=== PATIENT | female | born 1960 | race Caucasian/White ===

== ENCOUNTER → 2020-01-29 08:39 | Outpatient (BNVA) | payer BC, SELFPAY | PROVIDERS: Family Provider Family Medicine; PCP Family Medicine; Visit Provider Family Medicine | DX: I10 Essential (primary) hypertension (principal); E11.9 Type 2 diabetes mellitus without complications; E86.0 Dehydration; E78.2 Mixed hyperlipidemia | CPT/HCPCS: 80053; 80061; 82044; 83036; 85025 ==

== ENCOUNTER 2020-03-09 18:49 | Emergency (ER) | payer BC, SELFPAY ==
[2020-03-09 19:03] VITALS: BP 148/77; PULSE 68; RESP 16; TEMP 37; O2SAT 98
--- NOTE | 2020-03-09 19:19 | ED_ITS ---
HPI - Abdominal Pain General: Chief Complaint: Abdominal Pain Stated Complaint: abd pain Time Seen by Provider: 03/09/20 19:11 History of Present Illness: HPI narrative: Patient is a 59-year-old female comes to the ED with right lower quadrant abdominal pain. Patient says symptoms started Saturday night. She describes the pain as a dull achy pain in the right lower quadrant of her abdomen. When she lays flat or takes a deep breath she can feel the pain. She says that the pain has stayed the same since Saturday. She currently rates the pain about a 5 out of 10. Patient did say she was lifting and hauling wood during the day on Saturday. Denies any fever, chills, nausea, vomiting, loss of appetite, diarrhea, constipation, blood in the stool, dysuria, hematuria. Denies any past abdominal surgeries. Associated Symptoms: Denies chills, constipation, diarrhea, dysuria, fever(s), hematochezia, hematuria, nausea and vomiting Review of Systems Const: Denies: fever(s), chills or fatigue Eyes: Denies: change in vision or eye discomfort ENMT: Denies: throat pain, odynophagia, nasal discharge or nasal congestion Card: Denies: chest pain, palpitations, edema, swelling of feet/ankles, dyspnea on exertion or orthopnea Resp: Denies: dyspnea, productive cough or non-productive cough GI: Reports: abdominal pain (RLQ); Denies: nausea, vomiting, diarrhea, constipation or hematochezia : Denies: flank pain, dysuria or hematuria Musc: Denies: neck pain, back pain or extremity swelling Skin/Breast: Denies: rash or new lesions Neuro: Denies: headache(s), numbness in extremities or weakness in extremities PFSH ED PFSH: Medical History Agitation Benign essential HTN Hyperlipidemia Prediabetes Surgical History No pertinent past surgical history Family History Other Diabetes Social History Smoking and tobacco status: never smoked Alcohol intake: never Physical Exam Const: COMMON NORMALS: no acute distress, patient oriented x3, healthy appearing and alert GENERAL APPEARANCE: cooperative and comfortable HENMT: COMMON NORMALS: normocephalic HEAD & SCALP: normocephalic MOUTH: Normal oral and palatal mucosa present THROAT: posterior oropharynx normal and uvula midline Eye: COMMON NORMALS: Equal, round and reactive pupils present PUPIL: Yes Equal, round and reactive pupils present Neck/C-Spine: COMMON NORMALS: supple GENERAL: Yes normal visual inspection Resp: COMMON NORMALS: normal respiratory effort, No retractions, No use of accessory muscles and clear to auscultation bilaterally AUSCULTATION: clear to auscultation bilaterally Cardio: COMMON NORMALS: regular rate, regular rhythm, S1 normal heart sound present, S2 normal heart sound present, No gallops present (Cardio), No clicks present (Cardio), No murmurs present (Cardio) and Peripheral pulses 2+ throughout RATE: regular rate RHYTHM: regular rhythm HEART SOUNDS: S1 normal heart sound present and S2 normal heart sound present PERIPHERAL PULSES: Peripheral pulses 2+ throughout GI: COMMON NORMALS: Normal to inspection, nondistended, normoactive bowel sounds present, Soft to palpation and no masses PALPATION: Yes Soft to palpation and Yes Tenderness to palpation present (GI) Details: RLQ (minimal tenderness, no peritoneal signs) : COMMON NORMALS: Yes no CVA tenderness BLADDER/KIDNEY EXAM: Yes no CVA tenderness Back/Pelvis: COMMON NORMALS: no CVA tenderness Extremity: COMMON NORMALS: normal to inspection and no pedal edema Neuro: COMMON NORMALS: patient oriented x3 SENSORIUM/ORIENTATION: Yes alert GAIT: Yes Normal gait present Skin: COMMON NORMALS: no rashes or lesions noted GENERAL SKIN EXAM: no rashes or lesions noted and dry skin Course Vital Signs: Vital signs: Vital Signs Temperature 98.6 F 03/09/20 19:03 Pulse Rate 73 03/09/20 22:28 Respiratory Rate 14 03/09/20 22:28 Blood Pressure 113/56 03/09/20 22:28 Pulse Oximetry 95 03/09/20 22:28 MDM - Abdominal Pain MDM Narrative: Medical decision making narrative: Patient is a 5-year-old female comes to the ED with right lower quadrant abdominal pain. She has no other symptoms such as nausea, vomiting, fever, loss of appetite, diarrhea or constipation. Patient did state she did lift and move some water around her property right before abdominal pain. White blood cells 9, CMP, UA and lipase were unremarkable. CT of the abdomen was also performed to evaluate for appendicitis. CT results showed no acute findings no appendicitis seen. Patient diagnosed with abdominal muscle pain. She was discharged and told to follow-up with PCP in 7 to 10 days. Take ibuprofen for pain. Return to ED if any worsening symptoms. Patient understood and agreed with plan. Lab Data: Attestation: I reviewed the patient's lab results. Labs: Lab Results 03/09/20 03/09/20 03/09/20 Range/Units 19:17 19:17 19:40 WBC 9.0 (4.0-10.0) 10^3/ uL RBC 4.20 (4.1-5.3) 10^6/u L Hgb 12.5 (11.5-15.3) g/dL Hct 37.9 (37.0-47.0) % MCV 90.2 (81-99) fL MCH 29.8 (28.0-34.0) pg MCHC 33.0 (30.0-36.0) g/dL RDW 13.7 (12.1-15.1) % Plt Count 273 (130-400) 10^3/c mm MPV 10.3 (7.4-10.4) fL Neut % (Auto) 46.3 % Lymph % (Auto) 41.4 % [place] % (Auto) 9.7 % Eos % (Auto) 2.0 % Baso % (Auto) 0.4 % Neut # (Auto) 4.2 (1.8-7.7) 10^3/u L Lymph # (Auto) 3.7 (0.8-4.8) 10^3/u L [place] # (Auto) 0.9 (0.2-0.9) 10^3/u L Eos # (Auto) 0.2 (0.0-0.8) 10^3/u L Baso # (Auto) 0.0 (0.0-0.1) 10^3/u L Nucleated RBC % (a uto) 0 % Nucleated RBCs # 0.0 /100WBC Sodium 140 (136-145) mmol/L Potassium 3.9 (3.5-5.1) mmol/L Chloride 100 (98-107) mmol/L Carbon Dioxide 30 H (22-29) mmol/L Anion Gap 13.9 (5-19) BUN 17 (8-23) mg/dL Creatinine 0.7 (0.5-0.9) mg/dL GFR Calculation 85.4 L (90-130) mL/min Glucose 109 (65-115) mg/dL Calculated Osmolal ity 287 (285-295) mOsm/k g Calcium 9.8 (8.5-10.5) mg/dL Total Bilirubin 0.5 (0.15-1.2) mg/dL AST 15 (0-32) U/L ALT 19 (0-33) U/L Alkaline Phosphata se 62 (35-105) IU/L Total Protein 7.1 (6.6-8.7) g/dL Albumin 4.5 (3.5-5.2) g/dL Globulin 2.6 (1.3-4.6) g/dL Lipase 57 (13-60) U/L Urine Color Straw (Yellow) Urine Appearance Clear (CLEAR) Urine pH 6 (5-7) Ur Specific Gravit y 1.010 (1.005-1.030) Urine Protein Neg (Negative) Urine Glucose (UA) Norm (Normal) Urine Ketones Negative (Negative) Urine Blood Neg (Negative) Urine Nitrate Negative (Negative) Urine Bilirubin Neg (NEGATIVE) Urine Urobilinogen Norm (Negative) mg/dL Ur Leukocyte Iva ase Negative (Negative) Imaging Data ^: CT Abd/Pel: Attestation: I personally reviewed and interpreted this imaging study as follows: Radiologist's impression: [place] [address] CT Scan Report Signed Patient: Ana Zavaleta Unit #: [id number] : 1960 Acc t#:[id number] Age/Sex: 59 / F ADM Date: 03/09/20 Loc: ER Room/Bed: Attending Dr: Ordering Provider/Ordering MD: Adonis Rodriguez Date of Service: 03/09/20 Procedure(s): CT abdomen pelvis w con* [id number] Accession Number(s): [id number] Report Number: [id number] PROCEDURE INFORMATION: Exam: CT Abdomen And Pelvis With Contrast Exam date and time: 03/09/2020 8:06 PM Age: 59 years old Clinical indication: Abdominal pain; Localized; Right lower quadrant (rlq); Additional info: Rlq pain TECHNIQUE: Imaging protocol: Computed tomography of the abdomen and pelvis with intravenous contrast. Radiation optimization: All CT scans at this facility use at least one of these dose optimization techniques: automated exposure control; mA and/or kV adjustment per patient size (includes targeted exams where dose is matched to clinical indication); or iterative reconstruction. Contrast material: OMNI 300; Contrast volume: 95 ml; Contrast route: INTRAVENOUS (IV); COMPARISON: No relevant prior studies available. RADIATION DOSE METRICS: Total DLP (mGy-cm): 757.89 FINDINGS: Mediastinal space: Small hiatal hernia. Liver: Normal. No mass. Gallbladder and bile ducts: Multiple calcified stones in the gallbladder. No visible wall thickening. The bile ducts are normal. Pancreas: Normal. No ductal dilation. Spleen: Normal. No splenomegaly. Adrenals: Normal. No mass. Kidneys and ureters: Normal. No hydronephrosis. Stomach and bowel: Mild diverticulosis of the sigmoid colon without diverticulitis. The small bowel is unremarkable. Appendix: The appendix is visible and is normal. Intraperitoneal space: Unremarkable. No free air. No significant fluid collection. Vasculature: Unremarkable. No abdominal aortic aneurysm. Lymph nodes: Unremarkable. No enlarged lymph nodes. Bladder: Unremarkable as visualized. Reproductive: Unremarkable as visualized. Bones/joints: Unremarkable. No acute fracture. Soft tissues: Unremarkable. CT/CT abdomen pelvis w con* [id number] IMPRESSION: 1. No acute abnormality identified in the abdomen or pelvis. 2. Cholelithiasis. 3. Diverticulosis of the distal colon. Radiation Dose CTDIVOL = (mGy): DLP = 757.89 (mGy-cm) Dictated By: Haider Oliva Signed By: Haider Oliva Signed Date/Time: 03/09/202121 DD/ 20 Discharge Plan Discharge Patient Disposition: Home, Self-Care Clinical Impression: Abdominal muscle pain Condition: Stable Prescriptions: No Action lisinopril-hydrochlorothiazide 20-25 mg tablet 1 tab PO DAILY Qty: 90 RF: 0 citalopram [Celexa] 10 mg tablet 10 mg PO DAILY Qty: 90 RF: 0 atorvastatin 40 mg tablet 40 mg PO DAILY RF: 0 metformin 500 mg tablet extended release 24hr 500 mg PO DAILY RF: 0 Discharge Orders: Discharge Order (Routine); Ordered 03/09/20 Ordered By: Adonis Rodriguez Referrals: Madeline Valentino DO [Primary Care Provider] - Discharge Diet: Regular Discharge Activity: Increase activity as tolerated Patient Instructions: Muscle Strain (ED) Activity Restrictions/Additional Instructions: Contact your PCP and schedule a follow-up appointment for reevaluation in 7 to 10 days. Take ibuprofen for pain. You can apply ice pack or heat pad to help with symptoms. Rest for the next couple days and avoid any heavy lifting. Discharge Date/Time: 03/09/20 22:44 Coding Level of Care Code ED Outreach Librarian for Chg Fwd Exam Comprehensive
[2020-03-09 19:23] LABS: Basophils % 0.4 %; Eosinophils # 0.2 10^3/uL (0.0-0.8); Hematocrit 37.9 % (37.0-47.0); Hemoglobin 12.5 g/dL (11.5-15.3); Lymphocytes # 3.7 10^3/uL (0.8-4.8); Lymphocytes % 41.4 %; Mean Corpuscular Hemoglobin 29.8 pg (28.0-34.0); Mean Corpuscular Volume 90.2 fL (81-99); Mean Platelet Volume 10.3 fL (7.4-10.4); Monocytes # 0.9 10^3/uL (0.2-0.9); Monocytes % 9.7 %; Neutrophils # 4.2 10^3/uL (1.8-7.7); Neutrophils % 46.3 %; Nucleated Red Blood Cells % 0 %; Platelet Count 273 10^3/cmm (130-400); Red Cell Distribution Width 13.7 % (12.1-15.1)
[2020-03-09 19:49] LABS: Alanine Aminotransferase 19 U/L (0-33); Albumin Level 4.5 g/dL (3.5-5.2); Alkaline Phosphatase 62 IU/L (35-105); Anion Gap 13.9 (5-19); Aspartate Amino Transferase 15 U/L (0-32); Blood Urea Nitrogen 17 mg/dL (8-23); Calcium 9.8 mg/dL (8.5-10.5); Carbon Dioxide 30 mmol/L (22-29); Chloride 100 mmol/L (98-107); Globulin 2.6 g/dL (1.3-4.6); Glomerular Filtration Rate 85.4 mL/min (90-130); Glucose 109 mg/dL (65-115); Lipase 57 U/L (13-60); Osmolality Calculated 287 mOsm/kg (285-295); Potassium 3.9 mmol/L (3.5-5.1); Sodium 140 mmol/L (136-145); Total Bilirubin 0.5 mg/dL (0.15-1.2); Total Protein 7.1 g/dL (6.6-8.7)
[2020-03-09 20:04] LABS: Add Urine Microscopic? NO
--- NOTE | 2020-03-09 20:04 | CTR_ITS ---
PROCEDURE INFORMATION: Exam: CT Abdomen And Pelvis With Contrast Exam date and time: 03/09/2020 8:06 PM Age: 59 years old Clinical indication: Abdominal pain; Localized; Right lower quadrant (rlq); Additional info: Rlq pain TECHNIQUE: Imaging protocol: Computed tomography of the abdomen and pelvis with intravenous contrast. Radiation optimization: All CT scans at this facility use at least one of these dose optimization techniques: automated exposure control; mA and/or kV adjustment per patient size (includes targeted exams where dose is matched to clinical indication); or iterative reconstruction. Contrast material: OMNI 300; Contrast volume: 95 ml; Contrast route: INTRAVENOUS (IV); COMPARISON: No relevant prior studies available. RADIATION DOSE METRICS: Total DLP (mGy-cm): 757.89 FINDINGS: Mediastinal space: Small hiatal hernia. Liver: Normal. No mass. Gallbladder and bile ducts: Multiple calcified stones in the gallbladder. No visible wall thickening. The bile ducts are normal. Pancreas: Normal. No ductal dilation. Spleen: Normal. No splenomegaly. Adrenals: Normal. No mass. Kidneys and ureters: Normal. No hydronephrosis. Stomach and bowel: Mild diverticulosis of the sigmoid colon without diverticulitis. The small bowel is unremarkable. Appendix: The appendix is visible and is normal. Intraperitoneal space: Unremarkable. No free air. No significant fluid collection. Vasculature: Unremarkable. No abdominal aortic aneurysm. Lymph nodes: Unremarkable. No enlarged lymph nodes. Bladder: Unremarkable as visualized. Reproductive: Unremarkable as visualized. Bones/joints: Unremarkable. No acute fracture. Soft tissues: Unremarkable. CT/CT abdomen pelvis w con* [id number] IMPRESSION: 1. No acute abnormality identified in the abdomen or pelvis. 2. Cholelithiasis. 3. Diverticulosis of the distal colon. Radiation Dose CTDIVOL = (mGy): DLP = 757.89 (mGy-cm)
[2020-03-09 20:10] LABS: Urine Appearance Clear (CLEAR); Urine Color Straw (Yellow); pH Urine 6 (5-7)
[2020-03-09 20:11] LABS: Bilirubin Urine Neg (NEGATIVE); Blood Urine Neg (Negative); Glucose Urine UA Norm (Normal); Ketones Urine Negative (Negative); Leukocyte Esterase Urine Negative (Negative); Nitrate Urine Negative (Negative); Protein Urine Neg (Negative); Urobilinogen Urine Norm (Negative)
[2020-03-09 20:26] VITALS: BP 153/73; PULSE 78; RESP 14; O2SAT 98
[2020-03-09] MEDS: sodium chloride 0.9% 1,000 ML 999 ML IV (20:28)
[2020-03-09] MEDS: ondansetron 2 mg/ML SDV 2 mL 4 MG IVP (20:31)
[2020-03-09] MEDS: morphine 4 mg/mL SDV 1 mL IVP (20:32)
[2020-03-09] MEDS: iohexol 300 mg/mL 100 mL Btl IV (20:50)
[2020-03-09 21:32] VITALS: BP 111/75; PULSE 72; RESP 14; O2SAT 93
[2020-03-09 22:28] VITALS: BP 113/56; PULSE 73; RESP 14; O2SAT 95
== END 2020-03-09 22:44 | disposition home or self-care (01) ==
PROVIDERS: Emergency Medicine; Emergency Provider Physician Assistant; PCP Family Medicine
DX: R10.9 Unspecified abdominal pain (principal); I10 Essential (primary) hypertension; E78.5 Hyperlipidemia, unspecified
CPT/HCPCS: 12345; 36415; 74177; 80053; 81003; 83690; 85025; 96361; 96374; 96375; 99283; A9270; J2270; J2405; J7030; Q9967

== ENCOUNTER → 2020-06-09 09:55 | Outpatient (BNVA) | payer BC, SELFPAY | PROVIDERS: PCP Family Medicine; Visit Provider Family Medicine | DX: E11.9 Type 2 diabetes mellitus without complications (principal) | CPT/HCPCS: 80053; 83036 ==

== ENCOUNTER → 2020-09-08 08:30 | Outpatient (BNVA) | payer BC, SELFPAY | PROVIDERS: PCP Family Medicine; Visit Provider Family Medicine | DX: E78.2 Mixed hyperlipidemia (principal); E11.9 Type 2 diabetes mellitus without complications | CPT/HCPCS: 80053; 80061; 83036 ==

== ENCOUNTER 2020-09-19 08:12 | Outpatient (CLI) | payer BC, SELFPAY ==
--- NOTE | 2020-09-19 08:23 | MM_ITS ---
WS: [id number] Exam: [id number] Date/Time of Exam: 09/19/2020 9:12 AM Reason For Exam: SCREENING VIEWS: MLO and CC views both breasts. Comparison made with prior exam of 08/13/2018. Findings: There was no sign of mass, architectural distortion or suspicious calcification in either breast. gosia MM/[id number] Impression: BI-RADS: 2-Benign FOLLOW-UP: 1 Year Follow-up This mammogram was also analyzed by the Computer Aided Detection System R2 Imag e Dining Service Inspector.
== END 2020-09-19 08:13 | disposition home or self-care (01) ==
LOC: RADSHAW 08:14
PROVIDERS: PCP Family Medicine; Visit Provider Family Medicine
DX: Z12.31 Encounter for screening mammogram for malignant neoplasm of breast (principal)
CPT/HCPCS: 77067

== ENCOUNTER → 2021-03-23 09:03 | Outpatient (BNVA) | payer OTHER, SELFPAY | PROVIDERS: PCP Family Medicine; Visit Provider Family Medicine | DX: B35.1 Tinea unguium (principal); E78.2 Mixed hyperlipidemia | CPT/HCPCS: 80053 ==

== ENCOUNTER 2021-04-06 07:39 | Outpatient (CLI) | payer OTHER, SELFPAY ==
--- NOTE | 2021-04-06 08:00 | US_ITS ---
WS: [id number] ULTRASOUND PELVIS TECHNIQUE: Transabdominal and transvaginal. ULTRASOUND PELVIS TECHNIQUE: Transabdominal. CLINICAL INFORMATION: rlq pain LMP: : No. COMPARISON: None. FINDINGS: Technically difficult examination due to bowel gas. Uterus Orientation: Anteverted. Size: 5.7 cm x 4.0 cm x 3.0 cm. Masses: None. Cervix: Appears normal Endometrium: Small amount of fluid in the endometrial canal. Endometrium thickness: 0.2 cm. Adnexa: No adnexal masses. Ovaries not well visualized. Free fluid: None. Other findings: None. US/US pelvic with transvaginal IMPRESSION: Technically difficult examination 1. Uterus normal in appearance for age. Endometrium measures 2.3 mm. 2. Small amount of fluid in the endometrial canal 3. Ovaries not well visualized. 4. No other significant findings.
== END 2021-04-06 07:40 | disposition home or self-care (01) ==
LOC: RAD 07:41
PROVIDERS: PCP Family Medicine; Visit Provider Family Medicine
DX: R10.31 Right lower quadrant pain (principal)
CPT/HCPCS: 76830; 76856

== ENCOUNTER → 2021-06-13 08:59 | Outpatient (BNVA) | payer OTHER, SELFPAY | PROVIDERS: PCP Family Medicine; Visit Provider Family Medicine | DX: E78.2 Mixed hyperlipidemia (principal); E11.9 Type 2 diabetes mellitus without complications; I10 Essential (primary) hypertension | CPT/HCPCS: 80053; 80061; 83036; 85025 ==

== ENCOUNTER 2021-12-06 14:54 | Outpatient (CLI) | payer OTHER, SELFPAY ==
--- NOTE | 2021-12-06 15:01 | MM_ITS ---
WS: [id number] BILATERAL 3D TOMOSYNTHESIS DIGITAL SCREENING MAMMOGRAPHY WITH CAD CLINICAL INFORMATION: SCREENING HISTORY: Screening mammogram. No current complaints. COMPARISON: September 19, 2020 TECHNIQUE: Bilateral CC and MLO views. FINDINGS: Scattered fibroglandular densities bilaterally. Incidental punctate calcifications LEFT breast. No orantes spicious focal mass, asymmetry, calcifications, or architectural distortion. No evidence of malignanc y. MM/[id number] IMPRESSION: BI-RADS: 2-Benign FOLLOW UP: 1 Year Follow-up Recommend return to annual screening mammography.
== END 2021-12-06 14:55 | disposition home or self-care (01) ==
LOC: RADSHAW 14:57
PROVIDERS: PCP Family Medicine; Visit Provider Family Medicine
DX: Z12.31 Encounter for screening mammogram for malignant neoplasm of breast (principal)
CPT/HCPCS: 77063; 77067

== ENCOUNTER → 2021-12-12 10:32 | Outpatient (BNVA) | payer OTHER, MEDICAID, SELFPAY | PROVIDERS: PCP Family Medicine; Visit Provider Family Medicine | DX: E11.9 Type 2 diabetes mellitus without complications (principal) | CPT/HCPCS: 80053; 83036 ==

== ENCOUNTER → 2021-12-19 09:11 | Outpatient (BNVA) | payer OTHER, MEDICAID, SELFPAY | PROVIDERS: PCP Family Medicine; Referring Provider Family Medicine; Visit Provider Podiatrist Foot & Ankle Surgery | DX: M25.571 Pain in right ankle and joints of right foot (principal); M21.961 Unspecified acquired deformity of right lower leg | CPT/HCPCS: 73610 ==

== ENCOUNTER → 2022-06-18 08:30 | Outpatient (BNVA) | payer BC, MEDICAID, SELFPAY | PROVIDERS: PCP Family Medicine; Visit Provider Family Medicine | DX: I10 Essential (primary) hypertension (principal); E78.2 Mixed hyperlipidemia; E11.9 Type 2 diabetes mellitus without complications; R45.1 Restlessness and agitation | CPT/HCPCS: 80053; 80061; 83036; 85025 ==

== ENCOUNTER → 2022-06-21 09:16 | Outpatient (BNVA) | payer BC, MEDICAID, SELFPAY | PROVIDERS: PCP Family Medicine; Visit Provider Family Medicine | DX: E78.2 Mixed hyperlipidemia (principal); E11.9 Type 2 diabetes mellitus without complications; I10 Essential (primary) hypertension | CPT/HCPCS: 82043 ==

== ENCOUNTER 2022-10-28 13:24 | Emergency (ER) | payer BC, MEDICAID, SELFPAY ==
[2022-10-28] VITALS (12 sets, daily range): BP systolic 106–151; BP diastolic 60–83; PULSE 112; RESP 16; TEMP 36.7; O2SAT 90–96; BMI 34.3
--- NOTE | 2022-10-28 13:38 | ED_ITS ---
HPI - Nausea/Vomiting/Diarrhea General: Chief complaint: Nausea/Vomiting/Diarrhea Stated complaint: n/v/d Time Seen by Provider: 10/28/22 13:37 PFSH ED PFSH: Medical History Agitation Benign essential HTN Hyperlipidemia Type 2 diabetes mellitus, without long-term current use of insulin Surgical History No pertinent past surgical history Family History Other Diabetes Social History Smoking and tobacco status: never smoked Alcohol intake: never Course Vital Signs: Vital signs: Vital Signs Temperature 98.0 F 10/28/22 13:28 Pulse Rate 112 H 10/28/22 13:28 Respiratory Rate 16 10/28/22 13:28 Blood Pressure 151/82 10/28/22 13:28 Pulse Oximetry 94 10/28/22 13:28 Oxygen Delivery Me thod 10/28/22 13:28 Discharge Plan Discharge Condition: Stable Prescriptions: No Action terbinafine HCl 250 mg tablet 250 mg PO DAILY Qty: 90 0RF (DME) Night Splint See Rx Instructions .Route .MEDSUPPLY Qty: 1 0RF Rx Instructions: As directed citalopram 10 mg tablet See Rx Instructions .ROUTE .COMPLEX Qty: 90 1RF Dose Instruction: TAKE 1 TABLET BY MOUTH EVERY DAY Rx Instructions: TAKE 1 TABLET BY MOUTH EVERY DAY hydrochlorothiazide 25 mg tablet See Rx Instructions .ROUTE .COMPLEX Qty: 90 1RF Dose Instruction: TAKE 1 TABLET BY MOUTH IN THE MORNING Rx Instructions: TAKE 1 TABLET BY MOUTH IN THE MORNING atorvastatin 80 mg tablet 80 mg PO DAILY Qty: 90 1RF Ozempic 0.25 mg or 0.5 mg(2 mg/1.5 mL) pen injector 0.25 mg SUBCUT .weekly Qty: 1.5 5RF Rx Instructions: 340 B - Not covered by patient's insurance Referrals: Madeline Valentino DO [Primary Care Provider] - Coding Level of Care Code ED Canal Equipment Maintenance Supervisor for Chg Veronique
[2022-10-28] MEDS: sodium chloride 0.9% 1,000 ML 999 ML IV (14:09)
--- NOTE | 2022-10-28 14:23 | ED_ITS ---
HPI - Nausea/Vomiting/Diarrhea General: Chief complaint: Nausea/Vomiting/Diarrhea Stated complaint: n/v/d Time Seen by Provider: 10/28/22 13:37 Source: patient Mode of arrival: ambulatory History of Present Illness: 62-year-old female presents emergency room complaining of intermittent abdominal pain nausea and diarrhea for the last 2 days no fever sweats or chills some pain with urination. Her recently had Salmonella on is recovering from that she has had multiple loose stools now as well. MD elicited complaint: nausea, vomiting and diarrhea Onset (ago): day(s) Description of vomiting: food contents and watery Description of diarrhea: watery and semi-solid Associated nausea: Yes Associated abdominal pain: Yes Location of pain: Suprapubic Pain consistency: intermittent Severity: mild Associated symtoms: Reports anorexia and nausea; Denies altered mental status, anxiety, bloating, change in vision, chest pain, cough, diaphoresis, decreased urine output, dizziness, dysuria, epistaxis, fatigue, fecal incontinence, fevers/chills, headache(s), malaise, myalgias, numbness, palpitations, rash, short of breath, syncope, tenesmus, tinnitus, weakness or other Review of Systems Const: Denies: fatigue, malaise or diaphoresis Eyes: Denies: change in vision ENMT: Denies: tinnitus or epistaxis Card: Denies: chest pain, palpitations or syncope Resp: Denies: dyspnea, productive cough or non-productive cough GI: Reports: abdominal pain, nausea and diarrhea; Denies: vomiting, bloating or fecal incontinence : Denies: dysuria, urinary frequency or urinary urgency Musc: Denies: neck pain or back pain Skin/Breast: Denies: rash or pruritus Neuro: Denies: headache(s) or dizziness Psych: Denies: anxiety PFSH ED PFSH: Medical History Agitation Benign essential HTN Hyperlipidemia Type 2 diabetes mellitus, without long-term current use of insulin Surgical History No pertinent past surgical history Family History Other Diabetes Social History (Reviewed 10/28/22 @ 14:33 by JAYASHREE Christianson Smoking and tobacco status: never smoked Alcohol intake: never Physical Exam Const: EXAM LIMITATIONS: no altered mental status GENERAL APPEARANCE: business support coordinator perative and comfortable ORIENTATION/CONSCIOUSNESS: Yes awake, Yes oriented to person, Yes oriented to place and Yes oriented to time HENMT: COMMON NORMALS: normocephalic, atraumatic and hearing grossly normal bilaterally HEAD & SCALP: normocephalic and atraumatic Resp: COMMON NORMALS: normal respiratory effort, No retractions, No use of accessory muscles and clear to auscultation bilaterally AUSCULTATION: clear to auscultation bilaterally Cardio: COMMON NORMALS: regular rate, regular rhythm and No murmurs present (Cardio) RATE: regular rate RHYTHM: regular rhythm GI: COMMON NORMALS: Soft to palpation and No hepatosplenomegaly present AUSCULTATION: Yes normoactive bowel sounds PALPATION: Yes Soft to palpation, No Tenderness to palpation present (GI), No Guarding due to palpation present (GI) and Yes No hepatosplenomegaly present Extremity: COMMON NORMALS: normal to inspection, capillary refill normal, no clubbing, cyanosis or edema, no calf tenderness and no pedal edema Neuro: SENSORIUM/ORIENTATION: Yes oriented to person, Yes oriented to place and Yes oriented to time Skin: COMMON NORMALS: no rashes or lesions noted GENERAL SKIN EXAM: no rashes or lesions noted Course Vital Signs: Vital signs: Vital Signs Temperature 98.0 F 10/28/22 13:28 Pulse Rate 112 H 10/28/22 13:28 Respiratory Rate 16 10/28/22 13:28 Blood Pressure 106/82 10/28/22 14:30 Pulse Oximetry 92 10/28/22 14:30 Oxygen Delivery Me thod 10/28/22 13:28 MDM - Nausea/Vomiting/Diarrhea Medical Decision Making Patient did have 10-15 white blood cells proper field but also number of squamous cells 2+ leukocyte esterase. given her history most suspicious for Salmonella diarrhea. Family member with culture positive Salmonella. We will start on Levaquin 500 daily culture stool discharge home clear liquid diet offered antiemetics patient declined Medical Records I reviewed the patient's medical records. Lab Data I reviewed the patient's lab results. 10/28/22 14:08 10/28/22 14:08 Laboratory Results WBC 7.8 10^3/uL (4.0-10.0) 10/28/22 14:08 RBC 4.90 10^6/uL (4.1-5.3) 10/28/22 14:08 Hgb 14.4 g/dL (11.5-15.3) 10/28/22 14:08 Hct 42.5 % (37.0-47.0) 10/28/22 14:08 MCV 86.7 fl (81-99) 10/28/22 14:08 MCH 29.4 pg (28.0-34.0) 10/28/22 14:08 MCHC 33.9 g/dL (30.0-36.0) 10/28/22 14:08 RDW 13.3 % (12.1-15.1) 10/28/22 14:08 Plt Count 231 10^3/cmm (130-400) 10/28/22 14:08 MPV 11.0 fL (7.4-10.4) H 10/28/22 14:08 Neut % (Auto) 66.7 % 10/28/22 14:08 Lymph % (Auto) 15.6 % 10/28/22 14:08 Ray % (Auto) 17.1 % 10/28/22 14:08 Eos % (Auto) 0.0 % 10/28/22 14:08 Baso % (Auto) 0.3 % 10/28/22 14:08 Neut # (Auto) 5.22 10^3/uL (1.8-7.7) 10/28/22 14:08 Lymph # (Auto) 1.2 10^3/uL (0.8-4.8) 10/28/22 14:08 Ray # (Auto) 1.3 10^3/uL (0.2-0.9) H 10/28/22 14:08 Eos # (Auto) 0.0 10^3/uL (0.0-0.8) 10/28/22 14:08 Baso # (Auto) 0.0 10^3/uL (0.0-0.1) 10/28/22 14:08 Nucleated RBC % (auto) 0 % 10/28/22 14:08 Nucleated RBCs # 0.0 /100WBC 10/28/22 14:08 Sodium 130 mmol/L (136-145) L 10/28/22 14:08 Potassium 3.7 mmol/L (3.5-5.1) 10/28/22 14:08 Chloride 91 mmol/L (98-107) L 10/28/22 14:08 Carbon Dioxide 25 mmol/L (22-29) 10/28/22 14:08 Anion Gap 17.7 (5-19) 10/28/22 14:08 BUN 13 mg/dL (8-23) 10/28/22 14:08 Creatinine 0.8 mg/dL (0.5-0.9) 10/28/22 14:08 GFR Calculation 72.4 mL/min (90-130) L 10/28/22 14:08 Glucose 112 mg/dL (65-115) 10/28/22 14:08 Calculated Osmolality 271 mOsm/kg (285-295) L 10/28/22 14:08 Calcium 9.0 mg/dL (8.5-10.5) 10/28/22 14:08 Total Bilirubin 0.6 mg/dL (0.15-1.2) 10/28/22 14:08 AST 36 U/L (0-32) H 10/28/22 14:08 ALT 35 U/L (0-33) H 10/28/22 14:08 Alkaline Phosphatase 75 U/L (35-105) 10/28/22 14:08 Total Protein 7.5 g/dL (6.6-8.7) 10/28/22 14:08 Albumin 4.0 g/dL (3.5-5.2) 10/28/22 14:08 Globulin 3.5 g/dL (1.3-4.6) 10/28/22 14:08 Lipase 36 U/L (13-60) 10/28/22 14:08 Urine Color Yellow (Yellow) 10/28/22 13:37 Urine Appearance Hazy (CLEAR) A 10/28/22 13:37 Urine pH 6 (5-7) 10/28/22 13:37 Ur Specific [place] 1.015 (1.005-1.030) 10/28/22 13:37 Urine Protein 1+ (Negative) H 10/28/22 13:37 Urine Glucose (UA) Norm (Normal) 10/28/22 13:37 Urine Ketones Negative (Negative) 10/28/22 13:37 Urine Blood 3+ (Negative) H 10/28/22 13:37 Urine Nitrate Negative (Negative) 10/28/22 13:37 Urine Bilirubin Neg (Negative) 10/28/22 13:37 Urine Urobilinogen Norm mg/dL (Negative) 10/28/22 13:37 Ur Leukocyte Esterase 1+ (Negative) H 10/28/22 13:37 Urine RBC 0-4 /hpf (0-2) H 10/28/22 13:37 Urine WBC 15-25 /hpf (0-5) H 10/28/22 13:37 Ur Squamous Epith Cells 10-15 /hpf (0-5) H 10/28/22 13:37 Amorphous Sediment Not Reportable 10/28/22 13:37 Urine Bacteria Trace /hpf (NONE) 10/28/22 13:37 Discharge Plan Discharge Patient Disposition: Home Clinical Impression: Diarrhea Condition: Stable Prescriptions: New levofloxacin 500 mg tablet 500 mg PO DAILY 7 Days Qty: 7 0RF No Action terbinafine HCl 250 mg tablet 250 mg PO DAILY Qty: 90 0RF (DME) Night Splint See Rx Instructions .Route .MEDSUPPLY Qty: 1 0RF Rx Instructions: As directed citalopram 10 mg tablet See Rx Instructions .ROUTE .COMPLEX Qty: 90 1RF Dose Instruction: TAKE 1 TABLET BY MOUTH EVERY DAY Rx Instructions: TAKE 1 TABLET BY MOUTH EVERY DAY hydrochlorothiazide 25 mg tablet See Rx Instructions .ROUTE .COMPLEX Qty: 90 1RF Dose Instruction: TAKE 1 TABLET BY MOUTH IN THE MORNING Rx Instructions: TAKE 1 TABLET BY MOUTH IN THE MORNING atorvastatin 80 mg tablet 80 mg PO DAILY Qty: 90 1RF Ozempic 0.25 mg or 0.5 mg(2 mg/1.5 mL) pen injector 0.25 mg SUBCUT .weekly Qty: 1.5 5RF Rx Instructions: 340 B - Not covered by patient's insurance Discharge Orders: Discharge ED (Routine); Ordered 10/28/22 Ordered By: Levy Gibson Referrals: Madeline Valentino DO [Primary Care Provider] - Discharge Diet: Clear Liquid Discharge Activity: Increase activity as tolerated Patient Instructions: Opioid Safety, Pain Management Activity Restrictions/Additional Instructions: You are seen today for diarrhea based on the history was family member with Salmonella this would seem to be the most likely. You did have a few white blood cells in her urine however the urine was contaminated, the Levaquin would cover for bladder infection in either event. Recommend clear liquid diet for the next 2 days. Levaquin 1 tablet daily for 7 days. Coding Level of Care Code ED Liquid Waste Treatment Plant Operator for Shireen Fwd Exam Detailed
[2022-10-28 14:26] LABS: Basophils % 0.3 %; Hematocrit 42.5 % (37.0-47.0); Hemoglobin 14.4 g/dL (11.5-15.3); Lymphocytes # 1.2 10^3/uL (0.8-4.8); Lymphocytes % 15.6 %; Mean Corpuscular HGB Conc 33.9 g/dL (30.0-36.0); Mean Corpuscular Hemoglobin 29.4 pg (28.0-34.0); Mean Corpuscular Volume 86.7 fl (81-99); Monocytes # 1.3 10^3/uL (0.2-0.9); Monocytes % 17.1 %; Neutrophils # 5.22 10^3/uL (1.8-7.7); Neutrophils % 66.7 %; Nucleated Red Blood Cells % 0 %; Platelet Count 231 10^3/cmm (130-400); Red Cell Distribution Width 13.3 % (12.1-15.1); White Blood Count 7.8 10^3/uL (4.0-10.0)
[2022-10-28 14:41] LABS: Alanine Aminotransferase 35 U/L (0-33); Alkaline Phosphatase 75 U/L (35-105); Anion Gap 17.7 (5-19); Aspartate Amino Transferase 36 U/L (0-32); Blood Urea Nitrogen 13 mg/dL (8-23); Carbon Dioxide 25 mmol/L (22-29); Chloride 91 mmol/L (98-107); Creatinine Clr Calc Pharmacy 78.5255; Globulin 3.5 g/dL (1.3-4.6); Glomerular Filtration Rate 72.4 mL/min (90-130); Glucose 112 mg/dL (65-115); Lipase 36 U/L (13-60); Osmolality Calculated 271 mOsm/kg (285-295); Potassium 3.7 mmol/L (3.5-5.1); Sodium 130 mmol/L (136-145); Total Bilirubin 0.6 mg/dL (0.15-1.2); Total Protein 7.5 g/dL (6.6-8.7)
[2022-10-28 14:41] LABS: Urine Appearance Hazy (CLEAR); Urine Color Yellow (Yellow); pH Urine 6 (5-7)
[2022-10-28 14:42] LABS: Add Urine Microscopic? YES; Bilirubin Urine Neg (Negative); Blood Urine 3+ (Negative); Glucose Urine UA Norm (Normal); Ketones Urine Negative (Negative); Leukocyte Esterase Urine 1+ (Negative); Nitrate Urine Negative (Negative); Protein Urine 1+ (Negative); Specific Gravity, Urine 1.015 (1.005-1.030); Urobilinogen Urine Norm (Negative)
[2022-10-28 14:43] LABS: Add Urine Culture? No; Bacteria Urine TRACE /hpf; RBC Urine 0-4 /hpf (0-2); WBC Urine 15-25 /hpf (0-5)
== END 2022-10-28 15:57 | disposition home or self-care (01) ==
PROVIDERS: Physician Assistant; Emergency Provider Family Medicine; PCP Family Medicine
DX: R19.7 Diarrhea, unspecified (principal); I10 Essential (primary) hypertension; E78.5 Hyperlipidemia, unspecified; E11.9 Type 2 diabetes mellitus without complications
CPT/HCPCS: 36415; 80053; 81001; 83690; 85025; 87506; 99284; J7030

== ENCOUNTER → 2022-12-18 08:35 | Outpatient (BNVA) | payer BC, MEDICAID, SELFPAY | PROVIDERS: PCP Family Medicine; Visit Provider Family Medicine | DX: E11.9 Type 2 diabetes mellitus without complications (principal) | CPT/HCPCS: 80053; 83036 ==

== ENCOUNTER 2023-01-09 13:56 | Outpatient (CLI) | payer BC, MEDICAID, SELFPAY ==
--- NOTE | 2023-01-09 14:16 | MM_ITS ---
WS: [id number] Bilateral screening 3D tomosynthesis digital mammogram, 01/09/2023 Clinical Data: SCREEN Comparison: 12/06/2021, 09/19/2020, 09/15/2019, 08/13/2018. Findings: The breast parenchymal pattern shows fibroglandular tissue. No spiculated masses or clustered calcifi cations are seen. There are no secondary signs of carcinoma. MM/[place] [id number] Impression: 1. Negative bilateral mammogram unchanged. 2. Recommend annual screening mammograms. BIRADS: 1-Negative FOLLOW UP: 1 Year Follow-up The CAD mold checker was used.
== END 2023-01-09 13:57 | disposition home or self-care (01) ==
LOC: RAD 14:00
PROVIDERS: PCP Family Medicine; Visit Provider Family Medicine
DX: Z12.31 Encounter for screening mammogram for malignant neoplasm of breast (principal)
CPT/HCPCS: 77063; 77067

== ENCOUNTER → 2023-06-18 08:33 | Outpatient (BNVA) | payer BC, MEDICAID, SELFPAY | PROVIDERS: PCP Family Medicine; Visit Provider Family Medicine | DX: E78.2 Mixed hyperlipidemia (principal); E11.9 Type 2 diabetes mellitus without complications; I10 Essential (primary) hypertension; R45.1 Restlessness and agitation | CPT/HCPCS: 80053; 80061; 82043; 83036 ==

== ENCOUNTER 2023-07-12 13:34 | Outpatient (CLI) | payer BC, MEDICAID, SELFPAY ==
--- NOTE | 2023-07-12 13:39 | MM_ITS ---
WS: [id number] Diagnostic 3D tomosynthesis digital mammogram, 07/12/2023 Clinical Data: PAIN OF L BREAST/MASTODYNIA Comparison: 01/09/2023, 12/06/2021, 09/19/2020, 09/15/2019, 08/13/2018. Findings: The left breast showed fibroglandular tissue. CC, MLO and ML views were obtained. There were no spic ulated masses nor clustered calcifications. There are no secondary signs of carcinoma. There are anne ers in the lateral aspect of the left breast and no abnormalities could be seen. There were small aureliano ign calcifications in the lower central portion of the left breast. Impression: 1. Negative left breast mammogram. 2. Left breast ultrasound. MM/[place] [id number] BIRADS: 2-Benign FOLLOW UP: See Report The CAD chemical checker was used.
--- NOTE | 2023-07-12 14:15 | US_ITS ---
WS: [id number] Left breast ultrasound, 07/12/2023 Clinical Data: breast pain Comparison: None. Findings: Imaging in the upper outer quadrant of the left breast at the 1 to 3 o'clock position corresponding t o the patient's description of the breast pain. Only normal breast tissue could be seen. There were n o cysts or masses. Impression: 1. Negative left breast ultrasound. 2. Recommend return to annual screening mammograms. US/US breast LT limited* [id number] BIRADS: 2-Benign FOLLOW UP: See Report
== END 2023-07-12 13:35 | disposition home or self-care (01) ==
LOC: RAD 13:35
PROVIDERS: PCP Family Medicine; Visit Provider Emergency Medicine
DX: N64.4 Mastodynia (principal)
CPT/HCPCS: 76642; 77061; G0279

== ENCOUNTER → 2023-09-20 18:03 | Outpatient (BNVA) | payer BC, MEDICAID, SELFPAY | PROVIDERS: PCP Family Medicine; Visit Provider Nurse Practitioner | DX: R52 Pain, unspecified (principal); R50.9 Fever, unspecified | CPT/HCPCS: 87400; 87426 ==

== ENCOUNTER → 2023-12-31 09:22 | Outpatient (BNVA) | payer BC, MEDICAID, SELFPAY | PROVIDERS: PCP Family Medicine; Visit Provider Family Medicine | DX: E11.9 Type 2 diabetes mellitus without complications (principal); Z13.6 Encounter for screening for cardiovascular disorders | CPT/HCPCS: 80053; 83036; 85025 ==

== ENCOUNTER 2024-03-04 19:24 | Emergency (ER) | payer BC, MEDICAID, SELFPAY ==
[2024-03-04 19:34] VITALS: BP 137/76; PULSE 103; RESP 18; TEMP 38; O2SAT 96
--- NOTE | 2024-03-04 21:24 | ED_ITS ---
HPI - Headache 2 General: Chief Complaint: Headache Stated Complaint: Headache\Eyes Burning\Back Pain Time Seen by Provider: 03/04/24 21:21 History of Present Illness: 63-year-old female comes in today for co mplaints of headache, eye discomfort, and back pain since Saturday. Patient denies any cough or nausea or vomiting. Patient does have a history of diabetes, high blood pressure, and high cholesterol. Patient was all extremities well. Patient is appropriate with answering questions. Patient appears nontoxic. Associated symptoms: Reports fever(s) Review of Systems 2 General: Reports: 10 or more systems reviewed and unremarkable except in HPI and below Const: Reports: fever(s) and chills Musc: Reports: back pain Neuro: Reports: headache(s) PFSH ED 2 PFSH: Medical History Type 2 diabetes mellitus, without long-term current use of insulin Benign essential HTN Hyperlipidemia Agitation Surgical History No pertinent past surgical history Family History Other Diabetes Social History Smoking and tobacco/nicotine status: never used tobacco/nicotine Alcohol intake: never Substance/Drug Use: never Physical Exam 2 Const: COMMON NORMALS: alert HENMT: COMMON NORMALS: normocephalic and Normal external nose present HEAD & SCALP: normocephalic NOSE: Normal external nose present MOUTH: Normal oral and palatal mucosa present THROAT: posterior oropharynx normal Neck/C-Spine: COMMON NORMALS: full ROM and no meningeal signs Resp: COMMON NORMALS: normal respiratory effort and clear to auscultation bilaterally AUSCULTATION: clear to auscultation bilaterally Cardio: COMMON NORMALS: regular rate and regular rhythm RATE: regular rate RHYTHM: regular rhythm GI: COMMON NORMALS: Soft to palpation and non-tender PALPATION: Yes Soft to palpation : COMMON NORMALS: Yes no CVA tenderness BLADDER/KIDNEY EXAM: Yes no CVA tenderness Back/Pelvis: COMMON NORMALS: no CVA tenderness Extremity: COMMON NORMALS: full ROM Neuro: SENSORIUM/ORIENTATION: Yes alert MENINGEAL SIGNS: Yes no meningeal signs Skin: COMMON NORMALS: turgor normal GENERAL SKIN EXAM: turgor normal Course 2 Vital Signs: Vital signs: Vital Signs Temperature 100.4 F H 03/04/24 19:34 Pulse Rate 105 H 03/04/24 21:28 Respiratory Rate 18 03/04/24 21:28 Blood Pressure 142/70 03/04/24 21:28 Pulse Oximetry 92 03/04/24 21:28 Oxygen Delivery Me thod Room Air 03/04/24 19:34 MDM - Headache Medical Decision Making Patient comes in today for complaints of chills and sweats along with malaise and headache since Saturday. Patient does not recall being around anyone has been sick. Patient does endorse several tick bites this summer. Lungs are clear to auscultation. Skin is warm and dry. Vital signs are normal except for temperature of 100.4 and pulse of 103. Differential diagnosis includes tickborne fever, viral syndrome, dehydration, heat exhaustion. Laboratory values noted a white blood cell count 2.43, CMP was normal except for some mild elevation in AST's and ALTs into the 50s. Urinalysis was normal. Chest x-ray was normal. Reviewed exam with patient with recommendations for treatment of tickborne fever due to the changes in the labs and recent tick bites. Outstanding tickborne panel and respiratory 2 panel. Patient reports understanding of care plan and need for follow-up or return to the ER. Lab Data 03/04/24 21:40 03/04/24 21:40 Laboratory Results WBC 2.43 10^3/uL (3.29-11.43) L 03/04/24 21:40 RBC 4.35 10^6/uL (3.85-5.65) 03/04/24 21:40 Hgb 13.20 g/dL (11.27-16.99) 03/04/24 21:40 Hct 38.3 % (36-47) 03/04/24 21:40 MCV 88.0 fl (85-98) 03/04/24 21:40 MCH 30.3 pg (27-33) 03/04/24 21:40 MCHC 34.5 g/dL (30-55) 03/04/24 21:40 RDW 14.1 % (12.1-15.1) 03/04/24 21:40 Plt Count 147 10^3/cmm (157-399) L 03/04/24 21:40 MPV 10.5 fL (7.4-10.4) H 03/04/24 21:40 Neut % (Auto) 57.7 % 03/04/24 21:40 Lymph % (Auto) 26.7 % 03/04/24 21:40 [place] % (Auto) 14.8 % 03/04/24 21:40 Eos % (Auto) 0.0 % 03/04/24 21:40 Baso % (Auto) 0.4 % 03/04/24 21:40 Neut # (Auto) 1.40 10^3/uL (1.8-7.7) L 03/04/24 21:40 Lymph # (Auto) 0.7 10^3/uL (0.8-4.8) L 03/04/24 21:40 [place] # (Auto) 0.4 10^3/uL (0.2-0.9) 03/04/24 21:40 Eos # (Auto) 0.0 10^3/uL (0.0-0.8) 03/04/24 21:40 Baso # (Auto) 0.0 10^3/uL (0.0-0.1) 03/04/24 21:40 Nucleated RBC % (auto) 0 % 03/04/24 21:40 Nucleated RBCs # 0.0 /100WBC 03/04/24 21:40 Sodium 136 mmol/L (136-145) 03/04/24 21:40 Potassium 3.8 mmol/L (3.5-5.1) 03/04/24 21:40 Chloride 98 mmol/L (98-107) 03/04/24 21:40 Carbon Dioxide 26 mmol/L (22-29) 03/04/24 21:40 Anion Gap 15.8 (5-19) 03/04/24 21:40 BUN 15 mg/dL (8-23) 03/04/24 21:40 Creatinine 0.8 mg/dL (0.5-0.9) 03/04/24 21:40 GFR Calculation 72.2 mL/min (90-130) L 03/04/24 21:40 Glucose 126 mg/dL (65-115) H 03/04/24 21:40 Calculated Osmolality 284 mOsm/kg (285-295) L 03/04/24 21:40 Lactic Acid 1.3 mmol/L (0.5-2.2) 03/04/24 21:40 Calcium 8.7 mg/dL (8.5-10.5) 03/04/24 21:40 Total Bilirubin 0.5 mg/dL (0.15-1.2) 03/04/24 21:40 AST 54 U/L (0-32) H 03/04/24 21:40 ALT 54 U/L (0-33) H 03/04/24 21:40 Alkaline Phosphatase 79 U/L (35-105) 03/04/24 21:40 Total Protein 7.1 g/dL (6.6-8.7) 03/04/24 21:40 Albumin 3.7 g/dL (3.5-5.2) 03/04/24 21:40 Globulin 3.4 g/dL (1.3-4.6) 03/04/24 21:40 Urine Color Yellow (Yellow) 03/04/24 21:40 Urine Appearance Slightly cloudy (CLEAR) 03/04/24 21:40 Urine pH 7 (5-7) 03/04/24 21:40 Ur Specific [place] 1.015 (1.005-1.030) 03/04/24 21:40 Urine Protein Neg (Negative) 03/04/24 21:40 Urine Glucose (UA) Norm (Normal) 03/04/24 21:40 Urine Ketones Negative (Negative) 03/04/24 21:40 Urine Blood 2+ (Negative) H 03/04/24 21:40 Urine Nitrate Negative (Negative) 03/04/24 21:40 Urine Bilirubin Neg (Negative) 03/04/24 21:40 Urine Urobilinogen 1 mg/dL (Negative) H 03/04/24 21:40 Ur Leukocyte Esterase Negative (Negative) 03/04/24 21:40 Urine RBC 11-20 /hpf (0-2) 03/04/24 21:40 Urine WBC 0-4 /hpf (0-5) H 03/04/24 21:40 Ur Squamous Epith Cells 0-4 /hpf (0-5) H 03/04/24 21:40 Amorphous Sediment 1+ /hpf 03/04/24 21:40 Urine Bacteria Trace /hpf (NONE) 03/04/24 21:40 Urine Mucus Trace /hpf 03/04/24 21:40 All radiology interpretation(s) finalized by discharge Discharge Plan Discharge Patient Disposition: Home Clinical Impression: Tick fever Condition: Stable Prescriptions: New doxycycline hyclate 100 mg capsule 100 mg PO BID 14 Days Qty: 28 0RF No Action (DME) Night Splint See Rx Instructions .Route .MEDSUPPLY Qty: 1 0RF Rx Instructions: As directed Victoza 3-John 0.6 mg/0.1 mL (18 mg/3 mL) pen injector 1.8 mg SUBCUT Q24H Qty: 9 2RF (DME) PEN needles to be used with insulin therapy See Rx Instructions .Route .MEDSUPPLY Qty: 1 0RF Rx Instructions: As directed citalopram 20 mg tablet See Rx Instructions .ROUTE .COMPLEX Qty: 30 5RF Dose Instruction: TAKE 1 TABLET BY MOUTH EVERY DAY Rx Instructions: TAKE 1 TABLET BY MOUTH EVERY DAY Victoza 2-John 0.6 mg/0.1 mL (18 mg/3 mL) pen injector See Rx Instructions .ROUTE .COMPLEX Qty: 6 4RF Dose Instruction: INJECT 1.2 MG SUBCUTANEOUSLY DAILY Rx Instructions: INJECT 1.2 MG SUBCUTANEOUSLY DAILY hydrochlorothiazide 25 mg tablet See Rx Instructions .ROUTE .COMPLEX Qty: 30 5RF Dose Instruction: TAKE 1 TABLET BY MOUTH EVERY DAY IN THE MORNING Rx Instructions: TAKE 1 TABLET BY MOUTH EVERY DAY IN THE MORNING atorvastatin 80 mg tablet See Rx Instructions .ROUTE .COMPLEX Qty: 90 1RF Dose Instruction: TAKE 1 TABLET BY MOUTH EVERY DAY Rx Instructions: TAKE 1 TABLET BY MOUTH EVERY DAY Discharge Orders: Discharge ED (Routine); Ordered 03/04/24 Ordered By: Huy Gonsales Referrals: Madeline Valentino DO [Primary Care Provider] - Discharge Diet: Usual diet Discharge Activity: Increase activity as tolerated Patient Instructions: [place] Spotted Fever (ED) Activity Restrictions/Additional Instructions: Drink plenty of fluids. Acetaminophen and ibuprofen as needed for pain and discomfort. Activity as tolerated. Return to ER for worsening symptoms such as severe shortness of breath, inability to hold fluids down, or new concerns. Coding Level of Care Code ED [employer] for Shireen Piper
--- NOTE | 2024-03-04 21:27 | XRR_ITS ---
PROCEDURE INFORMATION: Exam: XR Chest Exam date and time: 03/04/2024 10:15 PM Age: 63 years old Clinical indication: Fever and other: Headache TECHNIQUE: Imaging protocol: Radiologic exam of the chest. Views: 1 view. COMPARISON: CT abdomen pelvis w con* [id number] 03/09/2020 8:42 PM FINDINGS: Lungs: Unremarkable. No consolidation. Pleural spaces: Unremarkable. No pleural effusion. No pneumothorax. Heart/Mediastinum: Unremarkable. No cardiomegaly. Bones/joints: Unremarkable. XR/XR chest 1V portable [id number] IMPRESSION: No acute findings.
[2024-03-04 21:28] VITALS: BP 142/70; PULSE 105; RESP 18; O2SAT 92
[2024-03-04] MEDS: sodium chloride 0.9% 1,000 ML 999 ML IV (21:49)
[2024-03-04 21:51] LABS: Basophils % 0.4 %; Hematocrit 38.3 % (36-47); Lymphocytes # 0.7 10^3/uL (0.8-4.8); Lymphocytes % 26.7 %; Mean Corpuscular HGB Conc 34.5 g/dL (30-55); Mean Corpuscular Hemoglobin 30.3 pg (27-33); Mean Platelet Volume 10.5 fL (7.4-10.4); Monocytes # 0.4 10^3/uL (0.2-0.9); Monocytes % 14.8 %; Neutrophils % 57.7 %; Nucleated Red Blood Cells % 0 %; Platelet Count 147 10^3/cmm (157-399); Red Blood Count 4.35 10^6/uL (3.85-5.65); Red Cell Distribution Width 14.1 % (12.1-15.1); White Blood Count 2.43 10^3/uL (3.29-11.43)
[2024-03-04 22:10] LABS: Bilirubin Urine Neg (Negative); Blood Urine 2+ (Negative); Glucose Urine UA Norm (Normal); Ketones Urine Negative (Negative); Leukocyte Esterase Urine Negative (Negative); Nitrate Urine Negative (Negative); Protein Urine Neg (Negative); Specific Gravity, Urine 1.015 (1.005-1.030); Urine Appearance Slightly Cloudy (CLEAR); Urine Color Yellow (Yellow); Urobilinogen Urine 1 mg/dL (Negative); pH Urine 7 (5-7)
[2024-03-04 22:11] LABS: Add Urine Microscopic? YES
[2024-03-04 22:12] LABS: Add Urine Culture? Yes; Amorphous Sediment Urine 1+ /hpf; Bacteria Urine TRACE /hpf; Mucus Urine TRACE /hpf; Squamous Epithelial Cell Urine 0-4 /hpf (0-5); WBC Urine 0-4 /hpf (0-5)
[2024-03-04 22:13] LABS: Lactic Sepsis W/Reflex 1.3 mmol/L (0.5-2.2)
[2024-03-04 22:20] LABS: Slide Review Slide Review Perform
[2024-03-04 22:21] LABS: Alanine Aminotransferase 54 U/L (0-33); Albumin Level 3.7 g/dL (3.5-5.2); Alkaline Phosphatase 79 U/L (35-105); Anion Gap 15.8 (5-19); Aspartate Amino Transferase 54 U/L (0-32); Blood Urea Nitrogen 15 mg/dL (8-23); Calcium 8.7 mg/dL (8.5-10.5); Carbon Dioxide 26 mmol/L (22-29); Chloride 98 mmol/L (98-107); Creatinine Clr Calc Pharmacy 77.5056; Globulin 3.4 g/dL (1.3-4.6); Glomerular Filtration Rate 72.2 mL/min (90-130); Glucose 126 mg/dL (65-115); Osmolality Calculated 284 mOsm/kg (285-295); Potassium 3.8 mmol/L (3.5-5.1); Sodium 136 mmol/L (136-145); Total Bilirubin 0.5 mg/dL (0.15-1.2); Total Protein 7.1 g/dL (6.6-8.7)
[2024-03-04] MEDS: doxycycline 100 mg Tablet PO (22:44)
[2024-03-04 22:49] VITALS: BP 133/78; PULSE 90; O2SAT 96
[2024-03-04 23:32] LABS: Adenovirus Not Detected (NOT DETECT); Chlamydia Pneumoniae Not Detected (NOT DETECT); Coronavirus 229E,HKU1,NL63,OC4 Not Detected (NOT DETECT); Human Metapneumovirus Not Detected (NOT DETECT); Human Rhinovirus/Enterovirus Not Detected (NOT DETECT); Influenza A Not Detected (NOT DETECT); Influenza A H1 Not Detected (NOT DETECT); Influenza A H1-2009 Not Detected (NOT DETECT); Influenza A H3 Not Detected (NOT DETECT); Influenza B Not Detected (NOT DETECT); Mycoplasma Pneumoniae Not Detected (NOT DETECT); Parainfluenza Virus Type 1 Not Detected (NOT DETECT); Parainfluenza Virus Type 2 Not Detected (NOT DETECT); Parainfluenza Virus Type 3 Not Detected (NOT DETECT); Parainfluenza Virus Type 4 Not Detected (NOT DETECT); Respiratory Syncytial Virus A Not Detected (NOT DETECT); Respiratory Syncytial Virus B Not Detected (NOT DETECT); SARS-COV-2 Not Detected (NOT DETECT)
[2024-03-06 13:14] LABS: Lyme AB Screen <0.90 index
[2024-03-10 22:05] LABS: E. Chaffeensis AB IGG <1:64; E. Chaffeensis AB IGM <1:20
== END 2024-03-04 22:51 | disposition home or self-care (01) ==
PROVIDERS: Emergency Provider Nurse Practitioner Family; PCP Family Medicine
DX: A68.1 Tick-borne relapsing fever (principal); E11.9 Type 2 diabetes mellitus without complications; I10 Essential (primary) hypertension; E78.5 Hyperlipidemia, unspecified
CPT/HCPCS: 36415; 71045; 80053; 81001; 83605; 85025; 86618; 86666; 86757; 87040; 87086; 87486; 87581; 87633; 99284; J7030

== ENCOUNTER → 2024-11-13 15:24 | Outpatient (BNVA) | payer MEDICARE, SELFPAY | PROVIDERS: PCP Family Medicine; Visit Provider Family Medicine | DX: E11.9 Type 2 diabetes mellitus without complications (principal); E78.2 Mixed hyperlipidemia; I10 Essential (primary) hypertension | CPT/HCPCS: 80053; 80061; 82043; 83036; 84443; 85025 ==

== ENCOUNTER 2025-02-24 14:12 | Outpatient (CLI) | payer MEDICARE, SELFPAY ==
--- NOTE | 2025-02-24 14:00 | MM_ITS ---
WS: [id number] BILATERAL 3D TOMOSYNTHESIS DIGITAL SCREENING MAMMOGRAPHY WITH CAD CLINICAL INFORMATION: screening HISTORY: Screening mammogram. No current complaints. COMPARISON: 2022 TECHNIQUE: Bilateral CC and MLO views. FINDINGS: Scattered fibroglandular densities bilaterally. No suspicious focal mass, asymmetry, calcifications, or architectural distortion. No evidence of malignancy. Incidental punctate calcifications LEFT breast MM/MM scr BI tomosynthesis [id number] IMPRESSION: DENSITY: There are scattered areas of fibroglandular density. BI-RADS: 2 - Benign. FOLLOW UP: 1 Year Follow-up Recommend return to annual screening mammography.
--- NOTE | 2025-02-24 14:30 | XR_ITS ---
WS: [id number] DEXA (DUAL ENERGY X-RAY ABSORPTIOMETRY) Bone mineral density was performed using a [employer] machine. HISTORY: postmenopausal COMPARISON: None available. Lumbar spine BMD (L1-L4): 1.319 g/cm2 T score: 1.2 Z score: 2.0 Total hip BMD: Left: 1.116 g/cm2. T score: 0.9 Z score: 1.5 Right: 1.036 g/cm2. T score: 0.2 Z score: 0.9 10 year probability of a major osteoporotic fracture is 8.1%. XR/XR DEXA axial skeleton* [id number] IMPRESSION: NORMAL BONE MINERAL DENSITY based upon the WHO classification for females.
== END 2025-02-24 14:13 | disposition home or self-care (01) ==
PROVIDERS: PCP Family Medicine; Visit Provider Family Medicine
DX: Z12.31 Encounter for screening mammogram for malignant neoplasm of breast (principal); Z78.0 Asymptomatic menopausal state; R92.323 Mammographic fibroglandular density, bilateral breasts; R92.1 Mammographic calcification found on diagnostic imaging of breast
CPT/HCPCS: 77063; 77067; 77080

== ENCOUNTER → 2025-05-21 08:23 | Outpatient (BNVA) | payer MEDICARE, SELFPAY | PROVIDERS: PCP Family Medicine; Visit Provider Family Medicine | DX: E11.9 Type 2 diabetes mellitus without complications (principal) | CPT/HCPCS: 83036 ==